=== PATIENT | female | born 2000 | race Caucasian/White ===

== ENCOUNTER 2019-11-15 15:11 | Outpatient (RCR) | payer OTHER | END 2019-12-23 | disposition still patient (30) | LOC: WSOH | DX: S46.011A Strain of muscle(s) and tendon(s) of the rotator cuff of right shoulder, initial encounter (principal); E07.9 Disorder of thyroid, unspecified; Y99.0 Civilian activity done for income or pay | CPT/HCPCS: J1030; J1885 ==

== ENCOUNTER 2022-07-08 15:32 | Emergency (ER) | payer OTHER, MEDICAID ==
[~2022-07-08] VITALS: Ht 167.6 cm; Wt 77.3 kg
[2022-07-08 15:51] VITALS: TEMP 98.5
[2022-07-08 16:36] LABS: BASO % 0.2 % (0.0-2.0); EOS % 0.3 % (0.0-4.0); GRAN # 3.2 K/mm3 (1.4-6.5); GRAN % 55.1 % (42.2-75.2); HEMATOCRIT 40.5 % (37.0-47.0); HEMOGLOBIN 13.8 g/dl (12.5-16.0); LYMPH # 2.3 K/mm3 (1.2-3.4); LYMPH % 39.7 % (20.0-51.0); MEAN CELL VOLUME 88 fl (80.0-100.0); MEAN CORPUSCULAR HEMOGLOBIN 30 pg (27-31); MEAN CORPUSCULAR HGB CONC 34 g/dl (33.0-37.0); MEAN PLATELET VOLUME 9.9 fl (7.4-10.4); MONO # 0.3 K/mm3 (0.1-0.6); MONO % 4.5 % (1.7-9.3); PLATELET COUNT 258 K/mm3 (130-400); REDCELL DISTRIBUTION WIDTH-CV 12.5 % (11.5-14.5)
[2022-07-08 16:51] LABS: ALANINE AMINOTRANSFERASE 10 U/L (0-55); ALKALINE PHOSPHATASE 52 U/L (40-150); ANION GAP 9 mmol/L (7-16); AST,SGOT 12 U/L (5-34); BILIRUBIN,TOTAL 0.5 mg/dL (0.2-1.2); BLOOD UREA NITROGEN 15 mg/dL (7-19); CALCIUM 9.2 mg/dL (8.4-10.2); CARBON DIOXIDE 24 mmol/L (22-29); CHLORIDE 106 mmol/L (98-107); CREATININE, serum 0.83 mg/dL (0.57-1.11); GLUCOSE 92 mg/dL (70-99); POTASSIUM 3.7 mmol/L (3.5-4.5); SODIUM 139 mmol/L (136-145); TOTAL PROTEIN 7.4 gm/dL (6.2-8.1)
[2022-07-08 16:57] LABS: TROPONIN-I < 0.010 ng/mL (0.00-0.033)
[2022-07-08 17:15] VITALS: BP 118/75; PULSE 77
== END 2022-07-08 17:16 | disposition home or self-care (01) ==
LOC: COL.ER 15:32
PROVIDERS: Emergency Medicine
DX: R07.2 Precordial pain (principal); Z28.310 Unvaccinated for COVID-19